=== PATIENT | female | born 1995 | race Two or more races ===

== ENCOUNTER 2024-05-09 17:41 | Emergency (ER) | payer OTHER ==
[~2024-05-09] VITALS: Ht 165.1 cm; Wt 59.0 kg
[2024-05-09] MEDS ORDERED: TRAMADOL HCL 50 MG TABLET PO ONE (19:30)
== END 2024-05-09 23:15 | disposition home or self-care (01) ==
LOC: ER 17:44
DX: S00.93XA Contusion of unspecified part of head, initial encounter (principal); X58.XXXA Exposure to other specified factors, initial encounter; Y93.89 Activity, other specified; Y92.89 Other specified places as the place of occurrence of the external cause; Y99.9 Unspecified external cause status